=== PATIENT | female | born 1960 | race Hispanic/Latino ===

== ENCOUNTER 2017-03-23 11:15 | Outpatient (CLI) | payer BC | END 2017-03-23 11:16 | disposition home or self-care (01) | LOC: LAB 11:15 | PROVIDERS: ATTEND Internal Medicine | DX: E03.9 Hypothyroidism, unspecified (principal) | CPT/HCPCS: 36415; 84439; 84443 ==

== ENCOUNTER 2017-04-09 14:44 | Outpatient (CLI) | payer BC ==
--- NOTE | 2017-04-09 15:36 | XRay Report ---
LEFT SHOULDER: Pain, history of trauma. Routine views demonstrate normal bony and joint structures with normal joint alignment of the shoulder. No soft tissue calcification. Preserved subacromial space. Negra dissection clips noted in axilla. IMPRESSION: Normal study.
== END 2017-04-09 14:45 | disposition home or self-care (01) ==
LOC: XRAY 14:44
PROVIDERS: ATTEND Internal Medicine
DX: M25.512 Pain in left shoulder (principal)

== ENCOUNTER 2017-05-19 18:01 | Outpatient (CLI) | payer BC ==
--- NOTE | 2017-05-20 10:38 | Magnetic Resonance Report ---
MRI LEFT SHOULDER WITHOUT CONTRAST: 05/19/17 CLINICAL: Pain. Impingement syndrome . TECHNIQUE: Coronal T1, coronal T2, coronal proton density fat saturation, sagittal proton density fat saturation and axial gradient echo T* sequences on a 1.5 Belkis magnet. FINDINGS: A type II acromion and moderately severe acromioclavicular joint arthritis with osteophytes and impingement of the supraspinatus tendon. The rotator cuff is intact. Degenerative cysts of the posterior humeral head. Mild subacromial and subdeltoid fluid. Physiologic fluid in the joint space. The long head of the biceps tendon and the glenoid labrum are intact. Normal muscles with no abnormal muscle signal. IMPRESSION: 1. Acromioclavicular joint arthritis with impingement of the supraspinatus tendon. 2. No rotator cuff tear. 3. Subdeltoid bursitis.
== END 2017-05-19 18:02 | disposition home or self-care (01) ==
LOC: MRI 18:01
PROVIDERS: ATTEND Orthopaedic Surgery
DX: M19.012 Primary osteoarthritis, left shoulder (principal); M75.42 Impingement syndrome of left shoulder; M75.52 Bursitis of left shoulder; M25.812 Other specified joint disorders, left shoulder

== ENCOUNTER 2017-05-27 06:15 | Day surgery (SDC) | payer BC ==
[2017-05-27] MEDS ORDERED: NACL BACTERIOSTATIC INFILTRATI ONE (06:51)
[2017-05-27 07:37] LABS: Basophils % (Auto) 0.7 % (0.0-1.8); Eosinophils % (Auto) 3.5 % (0.0-4.3); Hemoglobin 12.2 gm/dl (10.1-14.3); Mean Corpuscular HGB Conc 33 % (30-34); Mean Corpuscular Hemoglobin 28 pg (28-32); Mean Corpuscular Volume 86 fl (79-97); Platelet Count 235 K/mm3 (140-440); Red Blood Count 4.32 M/mm3 (3.65-5.03); Red Cell Distribution Width 14.8 % (13.2-15.2); White Blood Count 6.1 K/mm3 (4.5-11.0)
[2017-05-27] MEDS ORDERED: XYLOCAINE 1% 20 mL ONE (07:43)
[2017-05-27] MEDS ORDERED: DIPRIVAN 10 MG/ML IV ONE (07:43)
[2017-05-27] MEDS ORDERED: DECADRON ONE ×2 (07:43→09:47)
[2017-05-27] MEDS ORDERED: MARCAINE-EPI 0.25%-1:200,000 INFILTRATI ONE (07:44)
[2017-05-27] MEDS ORDERED: DILAUDID ONE (07:44)
[2017-05-27 07:51] LABS: Alanine Aminotransferase 18 units/L (7-56); Albumin 3.7 g/dL (3.9-5); Albumin/Globulin Ratio 1.4 %; Alkaline Phosphatase 68 units/L (35-129); Anion Gap 14 mmol/L; BUN/Creatinine Ratio 28.33; Blood Urea Nitrogen 17 mg/dL (7-17); Calcium 8.8 mg/dL (8.4-10.2); Carbon Dioxide 28 mmol/L (22-30); Chloride 104.3 mmol/L (98-107); Glucose 89 mg/dL (65-100); Potassium 4.2 mmol/L (3.6-5.0); Sodium 142 mmol/L (137-145); Total Protein 6.4 g/dL (6.3-8.2)
--- NOTE | 2017-05-27 07:53 | Anesthesia Day of Surgery ---
Anesthesia Day of Surgery - Day of Surgery Patient Examined: Yes Patient H&P Reviewed: Yes Patient is NPO: Yes
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
--- NOTE | 2017-05-27 07:57 | Anesthesia Consultation ---
Anesthesia Consult and Med Hx Date of service: 05/27/17 - Airway Anesthetic Teeth Evaluation: Good ROM Head & Neck: Adequate Mental/Hyoid Distance: Adequate Mallampati Class: Class II Intubation Access Assessment: Probably Good - Pulmonary Exam CTA: Yes - Cardiac Exam Cardiac Exam: RRR - Pre-Operative Health Status ASA Pre-Surgery Classification: ASA2 Proposed Anesthetic Plan: General Nerve Block: IS - Pulmonary Hx Smoking: No Hx Sleep Apnea: No (ALYSIA PRE SCREEN HIGH RISK) - Cardiovascular System Hx Hypertension: No Hx Cardia Arrhythmia: Yes (SVT S/P ABLATION IN 1990) - Endocrine Hx Thyroid Disease: Yes Hx Hypothyroidism: Yes (ON DAILY MEDS) - Other Systems Hx Obesity: Yes - Additional Comments Anesthesia Medical History Comments: PONV
[2017-05-27] MEDS ORDERED: DILAUDID IV PRN (07:58)
[2017-05-27] MEDS ORDERED: PEPCID PO NR (08:00)
[2017-05-27] MEDS ORDERED: VERSED IV NR (08:00)
[2017-05-27] MEDS ORDERED: NACL 0.9% 1000 ML 1,000 ML IV SCH (08:00)
[2017-05-27] MEDS ORDERED: TRANSDERM-SCOP TD NR (08:00)
[2017-05-27] MEDS ORDERED: SUBLIMAZE IV ONE (08:00)
[2017-05-27 08:01] LABS: Bilirubin,Urine NEG (Negative); Blood,Urine NEG (Negative); Ketones,Urine NEG (Negative); Leukocyte Esterase,Urine TR (Negative); Mucus,Urine FEW /HPF; Nitrite,Urine NEG (Negative); Protein,Urine <15 mg/dL mg/dL (Negative); Urobilinogen,Urine < 2.0 mg/dL (<2.0)
[2017-05-27] MEDS ORDERED: MARCAINE-EPI/PF 0.5%-1:200,000 INFILTRATI ONE ×2 (08:16→09:55)
[2017-05-27] MEDS ORDERED: DEPO-MEDROL ONE (08:17)
[2017-05-27] MEDS ORDERED: ADRENALIN ONE (08:26)
[2017-05-27] MEDS ORDERED: ZOFRAN IV PRN (09:00)
[2017-05-27] MEDS ORDERED: ANCEF/STERILE WATER 2 GM/20 ML IV NR (09:00)
[2017-05-27] MEDS ORDERED: NACL 0.9% IR ONE (09:32)
[2017-05-27] MEDS ORDERED: ADRENALIN IV ONE (09:32)
--- NOTE | 2017-05-27 09:39 | XRay Report ---
Chest 2 views. History: Hypoxia. Findings: A small granuloma is seen adjacent to the left heart border; otherwise, the lungs are clear. Surgical clips are noted in the left hemithorax. No pleural abnormalities are seen. Impression: No acute findings.
[2017-05-27] MEDS ORDERED: XYLOCAINE MPF 2% ONE (09:47)
[2017-05-27] MEDS ORDERED: QUELICIN ONE (09:47)
[2017-05-27] MEDS ORDERED: DEPO-MEDROL INTRA-ARTI ONE (09:55)
[2017-05-27] MEDS ORDERED: ZEMURON IV ONE (10:00)
[2017-05-27] MEDS ORDERED: ROBINUL ONE (10:02)
[2017-05-27] MEDS ORDERED: NEOSTIGMINE ONE (10:02)
[2017-05-27] MEDS ORDERED: NACL 0.9% 1000 ML 1,000 ML ONE (10:08)
[2017-05-27] MEDS ORDERED: ZOFRAN ONE (10:33)
--- NOTE | 2017-05-27 10:59 | Post Anesthesia Evaluation ---
- Post Anesthesia Evaluation Patient Participated: Yes Airway Patent: Yes Stable Respiratory Function: Yes Nausea/Vomiting: No Temp > 96.8F: Yes Pain Manageable: Yes Adequeate Hydration: Yes Anesthesia Complications: No Block Receding Appropriately: Yes Patient on Ventilator: No Other Comments: DIFFICULT INTUBATION, ATTEMPTS X 4 WITH FINAL ATTEMPT USING CMAC VIDEO LARYNGOSCOPE WITH BOUGIE. 7.0 ETT
[2017-05-27] MEDS ORDERED: ZOFRAN IV ONE ×2 (12:31→12:45)
[2017-05-27] MEDS ORDERED: PERCOCET 5/325 PO ONE (13:12)
[2017-05-27 13:35] VITALS: BP 142/67
--- NOTE | 2017-06-01 08:59 | Procedure Note ---
Date of procedure: 05/27/17 Pre-op diagnosis: impingement syndrome right shoulder Post-op diagnosis: same Procedure: Procedure - arthroscopy right shoulder with subacromial decompression Indications - 57-year-old female who complains of persistent right shoulder pain for the past 18 months, she has tried multiple conservative treatment regimens with little to no relief a preoperative MRI reveal impingement at the distal clavicle as well as the acromioclavicular joint. Procedure She was given an interscalene nerve block for postop pain management in preoperative holding area prior to transfer to the operating room. She was placed on the OR table in the supine position following induction and intubation by anesthesia she was then placed in the left lateral decubitus position at which point the left arm was suspended in longitudinal traction, the right shoulder was then prepped and draped in the usual sterile manner. A timeout procedure was done to identify the patient and the correct operative site. Stab wounds were made about the subacromial bursa posteriorly as well as laterally the arthroscope was inserted fluid was used to enlarge the viewing area next examination of the shoulder joint revealed hyperplasia of the subacromial bursa along with bony impingement the distal acromion and the acromioclavicular joint using a combination of our tissue ablator arthroscopic shaver and acromionizer the subacromial bursa and before meals joint were debrided to allow greater room for the rotator cuff tendons on the bursal side there did appear to be some small intrasubstance tearing however there were no full-thickness tears noted debridement the shoulder was then taken through range of motion did do not appear to be any residual impingement noted next the wound was copiously irrigated the arthroscopic instruments were removed stab wounds were repaired A Marcaine and Depo-Medrol injection was performed routine postoperative dressings were applied the patient tolerated the procedure there were no complications. He was taken to postanesthesia recovery in stable condition. Anesthesia: ROSI, regional Surgeon: OSIEL LOPES Estimated blood loss: minimal Pathology: none Condition: stable Disposition: PACU
== END 2017-05-27 13:27 | disposition home or self-care (01) ==
LOC: OR 06:15
PROVIDERS: ATTEND Orthopaedic Surgery
DX: M75.41 Impingement syndrome of right shoulder (principal); E03.9 Hypothyroidism, unspecified; E66.9 Obesity, unspecified; Z68.34 Body mass index [BMI] 34.0-34.9, adult; Z88.5 Allergy status to narcotic agent; Z88.8 Allergy status to other drugs, medicaments and biological substances; Z86.79 Personal history of other diseases of the circulatory system; Z79.899 Other long term (current) drug therapy
CPT/HCPCS: 29822; 36415; 71020; 80053; 81001; 85025; 93005; 93010; A4217; J0171; J0330; J0690; J1030; J1100; J1170; J2250; J2405; J2704; J2710; J3010; J7030